=== PATIENT | female | born 2000 | race Caucasian/White ===

== ENCOUNTER → 2021-03-03 | Outpatient (CLI) | payer OTHER ==
[~2021-03-03] MED LIST: Acyclovir400 MG PO; Gas-X80 MG; LIDO2L MM; Laxative5 M1; OMEP20ER; TRAZ50; Ultram50 MG PO
== END | disposition home or self-care (01) ==
LOC: LAB SHORT 18:13
DX: R35.0 Frequency of micturition (principal)
CPT/HCPCS: 87086